=== PATIENT | female | born 1950 | race Caucasian/White ===

== ENCOUNTER 2018-02-14 13:05 | Outpatient (CLI) | payer MEDICARE, OTHER ==
[2018-02-14 14:12] LABS: eGFR (Non-African) > 60
== END 2018-02-14 13:06 ==
LOC: LAB 13:05
PROVIDERS: ATTEND Nurse Practitioner Family
DX: E87.6 Hypokalemia (principal)
CPT/HCPCS: 36415; 80048

== ENCOUNTER 2018-08-12 08:21 | Outpatient (CLI) | payer MEDICARE, OTHER ==
[2018-08-12 10:13] LABS: eGFR (Non-African) > 60
== END 2018-08-12 08:23 ==
LOC: LAB 08:21
PROVIDERS: ATTEND Nurse Practitioner Family
DX: E87.6 Hypokalemia (principal)
CPT/HCPCS: 36415; 80053